=== PATIENT | male | born 1935 | race Caucasian/White ===

== ENCOUNTER 2019-11-15 10:43 | Inpatient (IN) | payer OTHER, MEDICAID ==
[~2019-11-15] VITALS: Ht 167.6 cm; Wt 76.7 kg
[2019-11-15 10:55] VITALS: BP_SYST 172
--- NOTE | 2019-11-15 10:55 | NUR ---
Patient to ER bed 6 to gown for evaluation. Side rails up.
--- NOTE | 2019-11-15 10:57 | NUR ---
Patient presented to ER C/O bilat lower extremity swelling. Patient BIB BLS from [facility], pain 09/04, denies N/V/D. Patient states he has swelling to bilat lower extremities x3 weeks, treated with lasix yesterday with no improvement.
--- NOTE | 2019-11-15 11:15 | NUR ---
ER Dr. Stuart at bedside examining patient.
[2019-11-15 11:39] LABS: BASOPHILS % (AUTO) 0.1 % (0.0-2.0); EOSINOPHILS # (AUTO) 0.4 K/uL (0.0-0.4); EOSINOPHILS % (AUTO) 6.3 % (0.0-4.0); HEMATOCRIT 35.1 % (36-54); HEMOGLOBIN 11.7 g/dL (14.0-18.0); LYMPHOCYTES # (AUTO) 1.6 K/uL (1.0-5.5); MEAN CORPUSCULAR HEMOGLOBIN 30 pg (27-31); MEAN CORPUSCULAR HGB CONC 33 % (32-36); MEAN CORPUSCULAR VOLUME 90 fL (79.0-98.0); MONOCYTES # (AUTO) 0.5 K/uL (0.0-1.0); MONOCYTES % (AUTO) 8.8 % (1.7-9.3); NEUTROPHILS # (AUTO) 3.2 K/uL (1.8-7.7); NEUTROPHILS % (AUTO) 56.8 % (40.0-70.0); PLATELET COUNT (AUTO) 104 K/uL (130-430); RED BLOOD CELL COUNT(AUTO) 3.91 MIL/uL (4.2-6.2); RED CELL DISTRIBUTION WIDTH 16.3 % (9.0-15.0); WHITE BLOOD COUNT (AUTO) 5.6 K/uL (4.8-10.8)
[2019-11-15 11:52] LABS: INR 1.1 (0.80-1.20); PROTHROMBIN TIME 10.8 SECS (9.5-12.5)
[2019-11-15 12:02] LABS: ANION GAP 4 (5-15); CALCIUM 7.9 mg/dL (8.4-11.0); CHLORIDE 104 mmol/L (98-107); GLUCOSE 88 mg/dL (70-99); SODIUM SERUM 137 mmol/L (136-145); UREA NITROGEN, BLOOD 21 mg/dL (8-21)
[2019-11-15 12:08] LABS: ALANINE AMINOTRANSFERASE 24 U/L (12-78); ASPARTATE AMINOTRANSFERASE 21 U/L (10-37); TOTAL BILIRUBIN 0.4 mg/dL (0.0-1.0)
--- NOTE | 2019-11-15 12:15 | NUR ---
PATIENT GIVEN HOSPITAL REGULAR DIET
--- NOTE | 2019-11-15 14:00 | NUR ---
# 20 gauge angiocath placed to Right AC. Use of asceptic technique. Opsite placed over site. Blood return noted. Blood for lab drawn from site. Flushed with 10 cc of normal saline. No evidence of infiltration noted. Patient tolerated well.
[2019-11-15] MEDS ORDERED: CEFAZOLIN 1 GM IVPB PREMIX 50 ML IV ONE (14:30)
[2019-11-15] MEDS ORDERED: CAT.2 PO (14:42)
[2019-11-15] MEDS ORDERED: DONE10TA37 PO (14:42)
[2019-11-15] MEDS ORDERED: FURO10VI27 PO (14:42)
[2019-11-15] MEDS ORDERED: FLUO40CA49 PO (14:42)
[2019-11-15] MEDS ORDERED: LISI40TA4 PO (14:42)
[2019-11-15] MEDS ORDERED: METO-442 PO (14:42)
[2019-11-15] MEDS ORDERED: TAMS-11 PO (14:42)
[2019-11-15] MEDS ORDERED: ZOLP5TAB2 PO (14:42)
[2019-11-15] MEDS ORDERED: DIVA250T PO (14:42)
[2019-11-15] MEDS ORDERED: POTA20TA83 PO (14:42)
[2019-11-15] MEDS ORDERED: AMLO5TAB4 PO (14:42)
--- NOTE | 2019-11-15 15:41 | NUR ---
Patient will be admitted to care of Dr. Bryant. Admitted to unit. Will go to room . Belongings list completed. Complete and up to date summary report printed. SBAR report to be given at bedside with opportunity for questions.
--- NOTE | 2019-11-15 16:21 | NUR ---
ADMISSION NOTE Received patient from ER via martha, received report from ALYSSA RHODES. Patient admitted with diagnosis of CONGESTIVE HEART FAILURE. Patient oriented to hospital routine, call light, toileting and safety-patient verbalized understanding.
--- NOTE | 2019-11-15 17:30 | NUR ---
RN rounds patient resting in bed, denies pain, no distress, continuing to monitor, bed in lowest position, two side rails up, call light within reach, fall and aspiration precautions in place, provided with socks per patient request.
--- NOTE | 2019-11-15 18:51 | NUR ---
Closing note patient resting in bed, awake, denies pain, finished eating dinner, all needs met, will endorse report to NOC shift nurse, bed in lowest position, two side rails up, call light within reach, fall and aspiration precautions in place.
--- NOTE | 2019-11-15 21:29 | NUR ---
HANNAHD I PAGED DR. CHEUNG I SPOKE WITH CANDIDO LEVINE
--- NOTE | 2019-11-15 21:50 | NUR ---
PAGED: DR Barbara CHEUNG PAGED PER PRIMARY RN REQUEST FOR PAIN MEDICATION.
[2019-11-15] MEDS ORDERED: ACETAMINOPHEN 325 MG TABLET PO ONE (22:00)
[2019-11-16 01:17] VITALS: BP_SYST 146
[2019-11-16] MEDS ORDERED: HYDROcodone/ACETAMIN 5-325 MG TAB (NORCO/ VICODIN) PO ONE (03:45)
[2019-11-16] MEDS ORDERED: ZOLPIDEM TARTRATE 5 MG TABLET PO PRN (04:45)
--- NOTE | 2019-11-16 06:05 | NUR ---
In Error - Medications ordered under Dr Lang (during 11/14- NOC shift) were actually ordered by Dr. Pillai.
[2019-11-16 07:01] LABS: BASOPHILS % (AUTO) 0.2 % (0.0-2.0); EOSINOPHILS # (AUTO) 0.3 K/uL (0.0-0.4); EOSINOPHILS % (AUTO) 4.9 % (0.0-4.0); HEMATOCRIT 37.3 % (36-54); HEMOGLOBIN 12.5 g/dL (14.0-18.0); LYMPHOCYTES # (AUTO) 1.4 K/uL (1.0-5.5); MEAN CORPUSCULAR HEMOGLOBIN 30 pg (27-31); MEAN CORPUSCULAR HGB CONC 34 % (32-36); MEAN CORPUSCULAR VOLUME 90 fL (79.0-98.0); MONOCYTES # (AUTO) 0.5 K/uL (0.0-1.0); MONOCYTES % (AUTO) 9.3 % (1.7-9.3); NEUTROPHILS # (AUTO) 3.3 K/uL (1.8-7.7); NEUTROPHILS % (AUTO) 60.6 % (40.0-70.0); PLATELET COUNT (AUTO) 119 K/uL (130-430); RED BLOOD CELL COUNT(AUTO) 4.16 MIL/uL (4.2-6.2); RED CELL DISTRIBUTION WIDTH 16.6 % (9.0-15.0); WHITE BLOOD COUNT (AUTO) 5.4 K/uL (4.8-10.8)
[2019-11-16 07:31] LABS: ALANINE AMINOTRANSFERASE 29 U/L (12-78); ALBUMIN 2.9 g/dL (3.4-4.8); ANION GAP 5 (5-15); ASPARTATE AMINOTRANSFERASE 20 U/L (10-37); CALCIUM 7.8 mg/dL (8.4-11.0); CHLORIDE 101 mmol/L (98-107); CREATININE 1.34 mg/dL (0.55-1.30); GLUCOSE 88 mg/dL (70-99); POTASSIUM 4.4 mmol/L (3.5-5.1); SODIUM SERUM 135 mmol/L (136-145); TOTAL BILIRUBIN 0.5 mg/dL (0.0-1.0); UREA NITROGEN, BLOOD 21 mg/dL (8-21)
[2019-11-16 08:00] VITALS: BP_SYST 197
[2019-11-16] MEDS: cefTRIAXone 1 GM in D5W 50 ML IV SCH (08:41)
[2019-11-16] MEDS: cloNIDine HCL 0.2 MG TABLET PO SCH ×2 (08:42→22:00)
[2019-11-16] MEDS: FUROSEMIDE 40 MG/4 ML VIAL IVP SCH (08:42)
[2019-11-16] MEDS: POTASSIUM CHLORIDE 20 MEQ TAB.PRT.SR PO SCH (08:42)
[2019-11-16] MEDS: amLODIPine BESYLATE 5 MG TABLET PO SCH (08:43)
[2019-11-16] MEDS: METOPROLOL TARTRATE 50 MG TABLET PO SCH ×3 (08:43→22:00)
[2019-11-16] MEDS: FLUoxetine HCL 20 MG CAPSULE (PROzac) PO SCH (08:44)
[2019-11-16] MEDS: LISINOPRIL 20 MG TABLET PO SCH ×2 (08:44→22:01)
--- NOTE | 2019-11-16 08:45 | NUR ---
Routine Patient resting comfortably in bed with no complaint of any pain. Scheduled medications given per order. Patient stable at this time.
[2019-11-16] MEDS ORDERED: FUROSEMIDE 40 MG/4 ML VIAL IVP SCH (09:00)
--- NOTE | 2019-11-16 09:00 | NUR ---
Routine Patient ambulated to bathroom and back to bed. Stable.
[2019-11-16] MEDS: DIVALPROEX SODIUM 250 MG TAB.SR.24H (DEPAKOTE ER) PO SCH ×3 (09:22→21:59)
--- NOTE | 2019-11-16 09:25 | NUR ---
Routine Patient ambulated to bathroom and back to bed. Scheduled medication given per order. Patient stable.
[2019-11-16 12:00] VITALS: BP_SYST 117
--- NOTE | 2019-11-16 12:30 | NUR ---
Routine Patient eating lunch with no complaint of pain or discomfort. Patient stable at this time.
--- NOTE | 2019-11-16 15:50 | NUR ---
Routine Patient sitting on side of bed; denies any pain at this time. Patient stable. Scheduled medication given per order.
[2019-11-16 16:54] VITALS: BP_SYST 158
--- NOTE | 2019-11-16 17:10 | NUR ---
Routine Patient ambulating in room; no distress, no complaint of any pain. Patient stable.
[2019-11-16 20:00] VITALS: BP_SYST 173
[2019-11-16] MEDS ORDERED: TAMSULOSIN HCL 0.4 MG CAP PO SCH (21:00)
[2019-11-16] MEDS ORDERED: DONEPEZIL HCL 5 MG TABLET (ARICEPT) PO SCH (21:00)
[2019-11-17 00:29] VITALS: BP_SYST 112
[2019-11-17 07:49] VITALS: BP_SYST 159
[2019-11-17 07:52] LABS: BASOPHILS % (AUTO) 0.1 % (0.0-2.0); EOSINOPHILS # (AUTO) 0.3 K/uL (0.0-0.4); EOSINOPHILS % (AUTO) 5.2 % (0.0-4.0); HEMATOCRIT 38.3 % (36-54); HEMOGLOBIN 12.9 g/dL (14.0-18.0); LYMPHOCYTES # (AUTO) 1.6 K/uL (1.0-5.5); LYMPHOCYTES % (AUTO) 29.7 % (20.5-51.5); MEAN CORPUSCULAR HEMOGLOBIN 30 pg (27-31); MEAN CORPUSCULAR HGB CONC 34 % (32-36); MEAN CORPUSCULAR VOLUME 89 fL (79.0-98.0); MONOCYTES # (AUTO) 0.4 K/uL (0.0-1.0); MONOCYTES % (AUTO) 8.1 % (1.7-9.3); NEUTROPHILS # (AUTO) 3.1 K/uL (1.8-7.7); NEUTROPHILS % (AUTO) 56.9 % (40.0-70.0); PLATELET COUNT (AUTO) 125 K/uL (130-430); RED BLOOD CELL COUNT(AUTO) 4.28 MIL/uL (4.2-6.2); RED CELL DISTRIBUTION WIDTH 16.3 % (9.0-15.0); WHITE BLOOD COUNT (AUTO) 5.5 K/uL (4.8-10.8)
--- NOTE | 2019-11-17 08:00 | NUR ---
Note Pt has been ambulating in room and out in hallway. Denies any SOB/resp distress or pain/discomfort at this time. IV in right AC intact and patent at this time. No needs noted at this time. Call light within reach.
[2019-11-17 08:17] LABS: ALANINE AMINOTRANSFERASE 27 U/L (12-78); ALBUMIN 3.1 g/dL (3.4-4.8); ANION GAP 5 (5-15); ASPARTATE AMINOTRANSFERASE 22 U/L (10-37); CHLORIDE 98 mmol/L (98-107); GLUCOSE 87 mg/dL (70-99); POTASSIUM 4.7 mmol/L (3.5-5.1); SODIUM SERUM 131 mmol/L (136-145); TOTAL BILIRUBIN 0.5 mg/dL (0.0-1.0); UREA NITROGEN, BLOOD 22 mg/dL (8-21)
[2019-11-17] MEDS: cefTRIAXone 1 GM in D5W 50 ML IV SCH (08:20)
[2019-11-17] MEDS: DIVALPROEX SODIUM 250 MG TAB.SR.24H (DEPAKOTE ER) PO SCH ×2 (08:21→15:34)
[2019-11-17] MEDS: amLODIPine BESYLATE 5 MG TABLET PO SCH (08:21)
[2019-11-17] MEDS: LISINOPRIL 20 MG TABLET PO SCH (08:22)
[2019-11-17] MEDS: METOPROLOL TARTRATE 50 MG TABLET PO SCH (08:23)
[2019-11-17] MEDS: cloNIDine HCL 0.2 MG TABLET PO SCH (08:23)
[2019-11-17] MEDS: FUROSEMIDE 40 MG/4 ML VIAL IVP SCH (08:24)
[2019-11-17] MEDS: POTASSIUM CHLORIDE 20 MEQ TAB.PRT.SR PO SCH (08:24)
[2019-11-17] MEDS: FLUoxetine HCL 20 MG CAPSULE (PROzac) PO SCH (08:24)
--- NOTE | 2019-11-17 12:00 | NUR ---
Note Dr Bryant on the floor, assessment being done at this time. Pt has been ambulating in room and hallway with steady gait. Discharge assessment being done. Call light within reach.
[2019-11-17 12:43] VITALS: BP_SYST 96
[2019-11-17] MEDS ORDERED: AMOX-423 PO (13:14)
--- NOTE | 2019-11-17 14:13 | NUR ---
DC PLANNING Received call from Aylin @ [facility], ph [phone], they are following pt @ [facility].
--- NOTE | 2019-11-17 15:50 | NUR ---
Note Pt's sister Kelli called back and stated she can pick pt up at 1800 to take back to [facility]. Pt was notified. Pt stable and denies any needs at this time. Call light within reach.
[2019-11-17 16:13] VITALS: BP_SYST 137
[2019-11-17 16:50] VITALS: BP_SYST 115
--- NOTE | 2019-11-17 17:45 | NUR ---
Note Pt's sister called back and stated an [employer] was called to pick pt up from hospital to [facility] at 1800. Pt's IV in right AC was dc'd and site benign. No swelling/redness/bleeding/drainage noted at this time. Pt dressed in street clothes and packed all his belongings. Pt checked side table and drawers for belongings. Pt was given discharge instructions and questions/concerns were answered at this time. Pt denies any SOB/resp distress or pain/discomfort when walking. Swelling in lower extremities is minimal at this time. Pt stable. Pt was checked on q1' and PRN all shift for needs and care.
--- NOTE | 2019-11-17 18:00 | NUR ---
Note Pt taken to front of the hospital via wheelchair with belongings and discharge paperwork. [employer] was there on time to pick pt up to take him back to [facility]. Pt stable.
== END 2019-11-17 18:00 | disposition home or self-care (01) | DRG 603 ==
LOC: SED 10:43 → SMU 13:56
PROVIDERS: ADMIT Internal Medicine Infectious Disease; ATTEND Internal Medicine Infectious Disease
DX: L03.116 Cellulitis of left lower limb (principal); I50.9 Heart failure, unspecified; L03.115 Cellulitis of right lower limb; I11.0 Hypertensive heart disease with heart failure
CPT/HCPCS: 36415; 71045; 80053; 83605; 83880; 84484; 85025; 85610-TC; 85730-TC; 87040-TC; 87081; 93005; 93306; 93970; 96365; 99285; J0690; J0696; J1940; J7050; J7060